=== PATIENT | female | born 1985 | race Caucasian/White ===

== ENCOUNTER 2017-02-02 09:47 | Emergency (ER) | payer OTHER ==
--- NOTE | 2017-02-02 10:57 | DIAGNOSTIC IMAGING REPORT ---
PROCEDURE: XR FOOT 3 VIEWS - LEFT INDICATION: PAIN TECHNIQUE: Three views. COMPARISON: None. FINDINGS: Osseous structures and joint spaces are normal. IMPRESSION: 1. Normal left foot.
--- NOTE | 2017-02-02 11:45 | ED CLINICAL REPORT ---
Clinical Report - Physicians/Mid Levels [facility] [address] [place] [address] 02/02/2017 9:49 [facility]: [facility]LE[id number] Time Seen: 10:08; initial patient contact. Arrived- By private vehicle. Historian- patient. HISTORY OF PRESENT ILLNESS Chief Complaint: Injury to the left foot. The injury happened about 2 weeks ago. Occurred at home. (no known injury). Patient is experiencing mild pain. Patient denies injury to the head or neck. REVIEW OF SYSTEMS The patient complains of pain on weight bearing. She has had tingling. Not having inability to void. No swelling, weakness, numbness, skin laceration or back pain. No joint pain. All systems otherwise negative, except as recorded above. PAST HISTORY Abscess. Dental Caries. Substance Abuse. ADD - Attention Deficit Disorder. Arthritis. Acute Pain. ADDITIONAL SURGERIES: Tubal Ligation. SOCIAL HISTORY Current every day smoker. Occasional alcohol use. No drug use. ADDITIONAL NOTES The nursing notes have been reviewed. PHYSICAL EXAM Vital Signs: 02/02/2017 09:56 BP: 123/86. HR: 82. RR: 18. O2 saturation: 100%. Temp: 97.8 F. Pain level now: 2/10. Have been reviewed as normal. Appearance: Alert. Oriented X3. No acute distress. Back: Normal inspection. No tenderness. ROM normal. Extremities: Left foot: mild tenderness. Neurovascular intact distally. No erythema, swelling, ecchymosis or deformity. No limitation of weight bearing. No ankle injury. Foot and ankle exam otherwise negative. Extremities otherwise negative. Neuro, Vascular and Tendons: Vascular status intact. Sensation intact. Motor intact. Tendon function intact. Gait: Normal gait. Neuro: Oriented X 3. No motor deficit. No sensory deficit. (Negative SLR's). LABS, X-RAYS, AND EKG Lt Foot X-ray: No fracture. Normal alignment. No bony lesion. Soft tissues normal. Joint spaces normal. Views: 3 view foot series. Technique: good. The X-rays were independently viewed by me and interpreted contemporaneously by me. Prior films were not available for comparison. PROGRESS AND PROCEDURES Disposition: Discharged home in good condition. Condition: good. CLINICAL IMPRESSION Paresthesia INSTRUCTIONS Apply ice for 20 minutes four times a day until better. Don't apply ice directly to skin. Your Current Medications: STOP TAKING THE FOLLOWING MEDICATIONS: Ibuprofen Oral. Prescription Medications: Diclofenac 50 mg tablets: take 1 tablet orally every 8 hours as needed for pain or stiffness. Dispense thirty (30). No refill. Follow-up: Follow up with your doctor in about two days. Call for an appointment. Screening today revealed the patient's blood pressure to be in the pre-hypertensive range. The patient should follow up with a primary care provider for blood pressure management. Follow-up with: Deejay Eugene MD, Neurology, , [address] , [place], [phone] Follow up in about two days. Call for an appointment. (Electronically signed by Familia Pino Dr. 02/03/2017 8:41)
--- NOTE | 2017-02-02 11:45 | ED ORDER SUMMARY ---
..... Patient: LUZ ELENA MALLORY OrderSheet [facility] VisitID: [id number] [address] [place] [address] 31y, F Registration Date/Time: 02/02/2017 ORDER SHEET Weight: 72.5 kg (stated) Allergies: Cipro, Levaquin GENERAL ORDERS: Foot 3V Left Urgent (10:38 02/02/2017 Shazia Pedroza) ([facility] 10:43 Isabel) (10:59 Jo Alejo) MEDICATION ORDERS: IV FLUIDS: ORDER SHEET NOTES: [Electronically signed by Sindy Gomez R.N. (11:48 02/02/2017)] [Electronically signed by Familia Pino Dr. (08:41 02/03/2017)] [Electronically locked/signed by Sindy Gomez R.N. (11:48 02/02/2017)]
--- NOTE | 2017-02-02 11:45 | ED NURSING NOTES ---
Clinical Report - Nurses [facility] [address] [place] [address] 02/02/2017 9:49 [id number] TRI[facility] Triage time 09:55 Feb 02 2017. Acuity: LEVEL 4. Chief Complaint: LEFT LOWER EXTREMITY PAIN, NUMBNESS and TINGLING. Location of symptoms- left great toe and left 2nd toe (About three weeks ago Left large toe was numb, now has graduated to other toes and foot, patient with pressure). 10:03 02/02/17. SEPSIS SCREEN: Sepsis Screen. Negative (no infection suspected/documented). MILY COMA SCORE: Stamps Coma Scale: 15- eyes open spontaneously (4); best verbal response- oriented x 4 (5); best motor response- obeys commands (6). --10:03 Idalia Knox R.N. 09:56 02/02/17. BP: 123/86 (regular adult cuff) taken on the left arm, while sitting. HR: 82. RR: 18. O2 saturation: 100% on room air. Temp: 97.8 F (oral). Pain level now: 11/20. --10:03 Idalia Knox R.N. Weight: 72.5 kg stated. Height/Length: 68 inches Per Patient. BMI: 24.3. --10:00 Idalia Knox R.N. Medications Ibuprofen Oral. --09:59 Idalia Knox R.N. Allergies Cipro. Levaquin. --09:59 Idalia Knox R.N. History Arrived by private vehicle. Historian: patient. Accompanied by family. Primary physician (MERCEDES MARIA). No injury occurred. This occurred (3 weeks ago). Provoking / relieving factors: worsened by standing and walking; relieved by lying down and remaining still. 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 PAST MEDICAL HX: Tetanus status: up-to-date. Last normal menstrual period was 4 weeks ago- days ago. SOCIAL HX: Current every day light tobacco smoker- less than 1/2 a pack per day. Occasional alcohol use; consumes wine. No drug use. No infectious disease exposure. ABUSE ASSESSMENT: No report of abuse. --10:03 Idalia Knox R.N. PROBLEMS: Abscess. Dental Caries. Substance Abuse. ADD - Attention Deficit Disorder. Arthritis. Acute Pain. --09:59 Idalia Knox R.N. ADDITIONAL SURGERIES: Tubal Ligation. --09:59 Idalia Knox R.N. Interventions ID band on patient. To treatment room. --10: Idlaia Knox R.N. PHYSICAL ASSESSMENT 10:02/02/17. Ambulatory to room. GENERAL / NEURO / PSYCH: Oriented X 4. Alert. Appears in no acute distress. EXTREMITIES: Extremity pulses are within normal limits. Extremities exhibit normal ROM. No lower extremity edema. Normal gait. Left big toe. Left second toe: tenderness. No limitation in movement. SKIN: Skin intact. Skin is warm. --10:03 Idalia Knox R.N. NURSING PROGRESS NOTES 10:02/02/17. The plan of care for this patient has been created. Reassurance given. Two patient identifiers checked. Call light placed in reach. Side rails up x 1. Bed placed in lowest position. Brakes of bed on. Patient ready for evaluation- chart flagged and ED physician notified. --10:04 Idalia Knox R.N. 10:59 02/02/17. ( Patient finished with xray). --10:59 Idalia Knox R.N. 11:02/02/17. ( patient offered blanket or water, she declined). --11:06 Idalia Knox R.N. DISPOSITION / DISCHARGE Departure time: 1145 AM. Condition at departure: improved and stable. The goals identified in the patient's plan of care were met. No learning barriers present. Reviewed medication(s) side effects, precautions, dosing and course information. Prescription(s) given to the patient. Reviewed referral to a neurologist. Patient and spouse verbalized understanding. Written instructions provided in Faroese. No warning instructions or treatment instructions. The patient was discharged by the physician. She was discharged home and accompanied by spouse. She left the Emergency Department ambulatory and via private vehicle. Spouse driving. FALL RISK ASSESSMENT: Fall risk assessment completed. No fall risk identified. --11:47 Sindy Gomez R.N. 11:40 02/02/17. BP: 129/88 (regular adult cuff) taken on the left arm, via an automated monitor, while sitting. HR: 87. RR: 14. O2 saturation: 100% on room air. Temp: 98.3 F (oral). Pain level now: 12/18. --11:47 Sindy Gomez R.N. Locked/Released at 02/02/2017 11:48 by Sindy Gomez R.N.
--- NOTE | 2017-02-02 11:45 | ED CLINICAL REPORT ---
Clinical Report - Physicians/Mid Levels [facility] [address] [place] [address] 02/02/2017 9:49 [facility]: [id number] Time Seen: 10:08; initial patient contact. Arrived- By private vehicle. Historian- patient. HISTORY OF PRESENT ILLNESS Chief Complaint: Injury to the left foot. The injury happened about 2 weeks ago. Occurred at home. (no known injury). Patient is experiencing mild pain. Patient denies injury to the head or neck. REVIEW OF SYSTEMS The patient complains of pain on weight bearing. She has had tingling. Not having inability to void. No swelling, weakness, numbness, skin laceration or back pain. No joint pain. All systems otherwise negative, except as recorded above. PAST HISTORY Abscess. Dental Caries. Substance Abuse. ADD - Attention Deficit Disorder. Arthritis. Acute Pain. ADDITIONAL SURGERIES: Tubal Ligation. SOCIAL HISTORY Current every day smoker. Occasional alcohol use. No drug use. ADDITIONAL NOTES The nursing notes have been reviewed. PHYSICAL EXAM Vital Signs: 02/02/2017 09:56 BP: 123/86. HR: 82. RR: 18. O2 saturation: 100%. Temp: 97.8 F. Pain level now: 2/10. Have been reviewed as normal. Appearance: Alert. Oriented X3. No acute distress. Back: Normal inspection. No tenderness. ROM normal. Extremities: Left foot: mild tenderness. Neurovascular intact distally. No erythema, swelling, ecchymosis or deformity. No limitation of weight bearing. No ankle injury. Foot and ankle exam otherwise negative. Extremities otherwise negative. Neuro, Vascular and Tendons: Vascular status intact. Sensation intact. Motor intact. Tendon function intact. Gait: Normal gait. Neuro: Oriented X 3. No motor deficit. No sensory deficit. (Negative SLR's). LABS, X-RAYS, AND EKG Lt Foot X-ray: No fracture. Normal alignment. No bony lesion. Soft tissues normal. Joint spaces normal. Views: 3 view foot series. Technique: good. The X-rays were independently viewed by me and interpreted contemporaneously by me. Prior films were not available for comparison. PROGRESS AND PROCEDURES Disposition: Discharged home in good condition. Condition: good. CLINICAL IMPRESSION Paresthesia INSTRUCTIONS Apply ice for 20 minutes four times a day until better. Don't apply ice directly to skin. Your Current Medications: STOP TAKING THE FOLLOWING MEDICATIONS: Ibuprofen Oral. Prescription Medications: Diclofenac 50 mg tablets: take 1 tablet orally every 8 hours as needed for pain or stiffness. Dispense thirty (30). No refill. Follow-up: Follow up with your doctor in about two days. Call for an appointment. Screening today revealed the patient's blood pressure to be in the pre-hypertensive range. The patient should follow up with a primary care provider for blood pressure management. Follow-up with: Deejay Eugene MD, Neurology, , [address] , [place], [phone] Follow up in about two days. Call for an appointment. (Electronically signed by Familia Pino Dr. 02/03/2017 8:41)
--- NOTE | 2017-02-02 11:45 | ED NURSING NOTES ---
Clinical Report - Nurses [facility] [address] [place] [address] 02/02/2017 9:49 [id number] TRI[facility] Triage time 09:55 Feb 02 2017. Acuity: LEVEL 4. Chief Complaint: LEFT LOWER EXTREMITY PAIN, NUMBNESS and TINGLING. Location of symptoms- left great toe and left 2nd toe (About three weeks ago Left large toe was numb, now has graduated to other toes and foot, patient with pressure). 10:03 02/02/17. SEPSIS SCREEN: Sepsis Screen. Negative (no infection suspected/documented). MILY COMA SCORE: Blak[place] Coma Scale: 15- eyes open spontaneously (4); best verbal response- oriented x 4 (5); best motor response- obeys commands (6). --10:03 Idalia Knox R.N. 09:56 02/02/17. BP: 123/86 (regular adult cuff) taken on the left arm, while sitting. HR: 82. RR: 18. O2 saturation: 100% on room air. Temp: 97.8 F (oral). Pain level now: 11/20. --10:03 Idalia Knox R.N. Weight: 72.5 kg stated. Height/Length: 68 inches Per Patient. BMI: 24.3. --10:00 Idalia Knox R.N. Medications Ibuprofen Oral. --09:59 Idalia Knox R.N. Allergies Cipro. Levaquin. --09:59 Idalia Knox R.N. History Arrived by private vehicle. Historian: patient. Accompanied by family. Primary physician (MERCEDES MARIA). No injury occurred. This occurred (3 weeks ago). Provoking / relieving factors: worsened by standing and walking; relieved by lying down and remaining still. 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 PAST MEDICAL HX: Tetanus status: up-to-date. Last normal menstrual period was 4 weeks ago- days ago. SOCIAL HX: Current every day light tobacco smoker- less than 1/2 a pack per day. Occasional alcohol use; consumes wine. No drug use. No infectious disease exposure. ABUSE ASSESSMENT: No report of abuse. --10:03 Idalia Knox R.N. PROBLEMS: Abscess. Dental Caries. Substance Abuse. ADD - Attention Deficit Disorder. Arthritis. Acute Pain. --09:59 Idalia Knox R.N. ADDITIONAL SURGERIES: Tubal Ligation. --09:59 Idalia Knox R.N. Interventions ID band on patient. To treatment room. --10: Idalia Knox R.N. PHYSICAL ASSESSMENT 10:02/02/17. Ambulatory to room. GENERAL / NEURO / PSYCH: Oriented X 4. Alert. Appears in no acute distress. EXTREMITIES: Extremity pulses are within normal limits. Extremities exhibit normal ROM. No lower extremity edema. Normal gait. Left big toe. Left second toe: tenderness. No limitation in movement. SKIN: Skin intact. Skin is warm. --10:03 Idalia Knox R.N. NURSING PROGRESS NOTES 10:02/02/17. The plan of care for this patient has been created. Reassurance given. Two patient identifiers checked. Call light placed in reach. Side rails up x 1. Bed placed in lowest position. Brakes of bed on. Patient ready for evaluation- chart flagged and ED physician notified. --10:04 Idalia Knox R.N. 10:59 02/02/17. ( Patient finished with xray). --10:59 Idalia Knox R.N. 11:02/02/17. ( patient offered blanket or water, she declined). --11:06 Idalia Knox R.N. DISPOSITION / DISCHARGE Departure time: 1145 AM. Condition at departure: improved and stable. The goals identified in the patient's plan of care were met. No learning barriers present. Reviewed medication(s) side effects, precautions, dosing and course information. Prescription(s) given to the patient. Reviewed referral to a neurologist. Patient and spouse verbalized understanding. Written instructions provided in Taiwanese. No warning instructions or treatment instructions. The patient was discharged by the physician. She was discharged home and accompanied by spouse. She left the Emergency Department ambulatory and via private vehicle. Spouse driving. FALL RISK ASSESSMENT: Fall risk assessment completed. No fall risk identified. --11:47 Sindy Gomez R.N. 11:40 02/02/17. BP: 129/88 (regular adult cuff) taken on the left arm, via an automated monitor, while sitting. HR: 87. RR: 14. O2 saturation: 100% on room air. Temp: 98.3 F (oral). Pain level now: 12/18. --11:47 Sindy Gomez R.N. Locked/Released at 02/02/2017 11:48 by Sindy Gomez R.N.
--- NOTE | 2017-02-02 11:45 | ED ORDER SUMMARY ---
..... Patient: LUZ ELENA MALLORY OrderSheet [facility] VisitID: [id number] [address] [place] [address] 31y, F Registration Date/Time: 02/02/2017 ORDER SHEET Weight: 72.5 kg (stated) Allergies: Cipro, Levaquin GENERAL ORDERS: Foot 3V Left Urgent (10:38 02/02/2017 Shazia Pedroza) ([facility] 10:43 Isabel) (10:59 Jo Alejo) MEDICATION ORDERS: IV FLUIDS: ORDER SHEET NOTES: [Electronically signed by Sindy Gomez R.N. (11:48 02/02/2017)] [Electronically signed by Familia Pino Dr. (08:41 02/03/2017)] [Electronically locked/signed by Sindy Gomez R.N. (11:48 02/02/2017)]
--- NOTE | 2017-02-03 08:41 | ED MED RECONCILIATION SUMMARY ---
Patient: LUZ ELENA MALLORY Medication Reconciliation Report [facility] VisitID: [id number] [address] [place] [place] [address] 31y, F Registration Date/Time: 02/02/2017 Weight: 72.5 kg Height/Length: 68 in. BMI: 24.3 ALLERGIES: Cipro, Levaquin The patient's Home Medications are listed below: STOP TAKING THE FOLLOWING MEDICATIONS: Ibuprofen Oral The source(s) of the original Home Medication information: Not obtained. The following Medications were given to the patient in the Emergency Department: None. The following Medications were prescribed to the patient: Diclofenac 50 mg tablets: take 1 tablet orally every 8 hours as needed for pain or stiffness. Dispense thirty (30). No refill. -- Familia Pino Dr.
--- NOTE | 2017-02-03 08:41 | ED DISCHARGE INSTRUCTIONS ---
Patient: LUZ ELENA MALLORY General Instructions [facility] VisitID: [id number] [place] [address] 31y, F Registration Date/Time: 02/02/2017 Paresthesia INSTRUCTIONS Apply ice for 20 minutes four times a day until better. Don't apply ice directly to skin. Your Current Medications: STOP TAKING THE FOLLOWING MEDICATIONS: Ibuprofen Oral. Prescription Medications: Diclofenac 50 mg tablets: take 1 tablet orally every 8 hours as needed for pain or stiffness. Dispense thirty (30). No refill. Follow-up: Follow up with your doctor in about two days. Call for an appointment. Screening today revealed the patient's blood pressure to be in the pre-hypertensive range. The patient should follow up with a primary care provider for blood pressure management. Follow-up with: Deejay Eugene MD, Neurology, , [address], , [place], [phone] Follow up in about two days. Call for an appointment. ADDITIONAL INFORMATION Paraesthesias Paraesthesia refers to a burning or prickling sensation that is sometimes felt in the hands, arms, legs or feet. It can also occur in other parts of the body. It can also feel like tingling or numbness, skin crawling or itching.The sensation is usually painless. Most people have experienced pins and needles. This feeling happens when legs have been crossed for too long and pressure is placed on a nerve. This is a temporary paraesthesia. It quickly goes away once the pressure is relieved. There are many possible causes for chronic paraesthesias. These include such disorders as stroke, herniated disk (pressing on a nerve), trapped nerve in the shoulder, elbow or wrist (such as carpal tunnel syndrome), vitamin deficiencies or even certain medicines. Laboratory tests are needed to make an accurate diagnosis. These tests may include blood tests, X-ray, CT (computerized tomography) scan or a muscle test (electromyography).Depending on the cause, treatment may include physical therapy. Home Care: Do not make any changes to your medicines without advice from your doctor. If vitamins have been prescribed, remember to take them daily at the recommended dose. Because of a decrease in feeling, a numb hand or foot may be more prone to injury. Take care to protect these areas from cuts, bumps, bruises, paul or other injury. Keep your nails trimmed and wash your hands and feet often. Wear shoes that fit well to avoid pressure points, blisters and ulcers. Look at your hands and feet carefully (including the soles of your feet and between your toes) at least once a week and notify your doctor of any open wounds or signs of infection. Follow Up with your doctor or as advised by our staff. You may need further testing to determine the exact cause of your paraesthesia. [NOTE: If blood tests, X-ray, CT scan or electromyography were done, specialists will review them. You will be notified of any new findings that may affect your care.] Get Prompt Medical Attention if any of the following occur: Numbness or weakness of the face, one arm or one leg Slurred speech, confusion, trouble speaking, walking or seeing Severe headache, fainting spell, dizziness or seizure Chest, arm, neck or upper back pain Loss of bladder or bowel control Open wound with redness, swelling or pus You have been given the following additional information: Paraesthesias (Electronically signed by Familia Pino Dr. 02/03/2017 8:41)
--- NOTE | 2017-02-03 08:41 | ED MAR SUMMARY ---
..... Medication Administration Record [facility] [address] [id number] Patient: LUZ ELENA MALLORY Visit ID: [id number] 31y, F Weight: 72.5 kg Height/Length: 68 in BMI: 24.3 ALLERGIES: Cipro, Levaquin
--- NOTE | 2017-02-03 08:41 | ED DISCHARGE INSTRUCTIONS ---
Patient: LUZ ELENA MALLORY General Instructions [facility] VisitID: [id number] [place] [address] 31y, F Registration Date/Time: 02/02/2017 Paresthesia INSTRUCTIONS Apply ice for 20 minutes four times a day until better. Don't apply ice directly to skin. Your Current Medications: STOP TAKING THE FOLLOWING MEDICATIONS: Ibuprofen Oral. Prescription Medications: Diclofenac 50 mg tablets: take 1 tablet orally every 8 hours as needed for pain or stiffness. Dispense thirty (30). No refill. Follow-up: Follow up with your doctor in about two days. Call for an appointment. Screening today revealed the patient's blood pressure to be in the pre-hypertensive range. The patient should follow up with a primary care provider for blood pressure management. Follow-up with: Deejay Eugene MD, Neurology, , [address], , [place], [phone] Follow up in about two days. Call for an appointment. ADDITIONAL INFORMATION Paraesthesias Paraesthesia refers to a burning or prickling sensation that is sometimes felt in the hands, arms, legs or feet. It can also occur in other parts of the body. It can also feel like tingling or numbness, skin crawling or itching.The sensation is usually painless. Most people have experienced pins and needles. This feeling happens when legs have been crossed for too long and pressure is placed on a nerve. This is a temporary paraesthesia. It quickly goes away once the pressure is relieved. There are many possible causes for chronic paraesthesias. These include such disorders as stroke, herniated disk (pressing on a nerve), trapped nerve in the shoulder, elbow or wrist (such as carpal tunnel syndrome), vitamin deficiencies or even certain medicines. Laboratory tests are needed to make an accurate diagnosis. These tests may include blood tests, X-ray, CT (computerized tomography) scan or a muscle test (electromyography).Depending on the cause, treatment may include physical therapy. Home Care: Do not make any changes to your medicines without advice from your doctor. If vitamins have been prescribed, remember to take them daily at the recommended dose. Because of a decrease in feeling, a numb hand or foot may be more prone to injury. Take care to protect these areas from cuts, bumps, bruises, paul or other injury. Keep your nails trimmed and wash your hands and feet often. Wear shoes that fit well to avoid pressure points, blisters and ulcers. Look at your hands and feet carefully (including the soles of your feet and between your toes) at least once a week and notify your doctor of any open wounds or signs of infection. Follow Up with your doctor or as advised by our staff. You may need further testing to determine the exact cause of your paraesthesia. [NOTE: If blood tests, X-ray, CT scan or electromyography were done, specialists will review them. You will be notified of any new findings that may affect your care.] Get Prompt Medical Attention if any of the following occur: Numbness or weakness of the face, one arm or one leg Slurred speech, confusion, trouble speaking, walking or seeing Severe headache, fainting spell, dizziness or seizure Chest, arm, neck or upper back pain Loss of bladder or bowel control Open wound with redness, swelling or pus You have been given the following additional information: Paraesthesias (Electronically signed by Familia Pino Dr. 02/03/2017 8:41)
--- NOTE | 2017-02-03 08:41 | ED MED RECONCILIATION SUMMARY ---
Patient: LUZ ELENA MALLORY Medication Reconciliation Report [facility] VisitID: [id number] [address] [place] [address] 31y, F Registration Date/Time: 02/02/2017 Weight: 72.5 kg Height/Length: 68 in. BMI: 24.3 ALLERGIES: Cipro, Levaquin The patient's Home Medications are listed below: STOP TAKING THE FOLLOWING MEDICATIONS: Ibuprofen Oral The source(s) of the original Home Medication information: Not obtained. The following Medications were given to the patient in the Emergency Department: None. The following Medications were prescribed to the patient: Diclofenac 50 mg tablets: take 1 tablet orally every 8 hours as needed for pain or stiffness. Dispense thirty (30). No refill. -- [address].
--- NOTE | 2017-02-03 08:41 | ED MAR SUMMARY ---
..... Medication Administration Record [facility] [address] [place], [place] [id number] Patient: LUZ ELENA MALLORY Visit ID: [id number] 31y, F Weight: 72.5 kg Height/Length: 68 in BMI: 24.3 ALLERGIES: Cipro, Levaquin
== END 2017-02-02 11:43 | disposition home or self-care (01) ==
LOC: ED SRH 09:47
DX: R20.2 Paresthesia of skin (principal); F17.210 Nicotine dependence, cigarettes, uncomplicated; Z88.1 Allergy status to other antibiotic agents

== ENCOUNTER 2017-03-11 20:15 | Emergency (ER) | payer OTHER ==
--- NOTE | 2017-03-11 23:34 | ED ORDER SUMMARY ---
..... Patient: LUZ ELENA MALLORY OrderSheet [facility] VisitID: [id number] [place] [address] 31y, F Registration Date/Time: 03/11/2017 ORDER SHEET Weight: 78.4 kg (stated) Allergies: Cipro, Levaquin GENERAL ORDERS: UA-Culture if indicated Urgent (20:48 03/11/2017 DDavis R.N. per protocol) (20:48 DDavis R.N.) Urine Urgent (20:48 03/11/2017 DDavis R.N. per protocol) (20:48 DDavis R.N.) CBC w Diff Urgent (21:02 03/11/2017 EKoroleva P.A.-C) (Ack 21:04 LMuller) (21:14 RCollier R.N.) CMP Urgent (21:02 03/11/2017 EKoroleva P.A.-C) (Ack 21:04 LMuller) (21:14 RCollier R.N.) Lipase Urgent (21:02 03/11/2017 EKoroleva P.A.-C) (Ack 21:04 LMuller) (21:14 RCollier R.N.) US Abdomen Limited (No) Urgent (21:53 03/11/2017 EKoroleva P.A.-C) (Ack 21:57 LMuller) (23:20 LMuller) MEDICATION ORDERS: IV FLUIDS: IV NS : initial bolus 1000 mL (1000 mL/hr), then 1000 mL/hr for X1 (NOW); Jayce (21:01 03/11/2017 EKoroleva P.A.-C) (21:21 DDavis R.N.) Zofran IV 8 mg (NOW) (21:01 03/11/2017 EKoroleva P.A.-C) (21:21 DDavis R.N.) ORDER SHEET NOTES: [Electronically signed by James Hawkins R.N. (23:47 03/11/2017)] [Electronically signed by Sonja Resendiz MD (15:41 03/24/2017)] [Electronically locked/signed by James Hawkins R.N. (23:47 03/11/2017)]
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
--- NOTE | 2017-03-11 23:34 | ED ORDER SUMMARY ---
..... Patient: LUZ ELENA MALLORY OrderSheet [facility] VisitID: [id number] [place] [address] 31y, F Registration Date/Time: 03/11/2017 ORDER SHEET Weight: 78.4 kg (stated) Allergies: Cipro, Levaquin GENERAL ORDERS: UA-Culture if indicated Urgent (20:48 03/11/2017 DDavis R.N. per protocol) (20:48 DDavis R.N.) Urine Urgent (20:48 03/11/2017 DDavis R.N. per protocol) (20:48 DDavis R.N.) CBC w Diff Urgent (21:02 03/11/2017 EKoroleva P.A.-C) (Ack 21:04 LMuller) (21:14 RCollier R.N.) CMP Urgent (21:02 03/11/2017 EKoroleva P.A.-C) (Ack 21:04 LMuller) (21:14 RCollier R.N.) Lipase Urgent (21:02 03/11/2017 EKoroleva P.A.-C) (Ack 21:04 LMuller) (21:14 RCollier R.N.) US Abdomen Limited (No) Urgent (21:53 03/11/2017 EKoroleva P.A.-C) (Ack 21:57 LMuller) (23:20 LMuller) MEDICATION ORDERS: IV FLUIDS: IV NS : initial bolus 1000 mL (1000 mL/hr), then 1000 mL/hr for X1 (NOW); Jayce (21:01 03/11/2017 EKoroleva P.A.-C) (21:21 DDavis R.N.) Zofran IV 8 mg (NOW) (21:01 03/11/2017 EKoroleva P.A.-C) (21:21 DDavis R.N.) ORDER SHEET NOTES: [Electronically signed by James Hawkins R.N. (23:47 03/11/2017)] [Electronically signed by Sonja Resendiz MD (15:41 03/24/2017)] [Electronically locked/signed by James Hawkins R.N. (23:47 03/11/2017)]
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
--- NOTE | 2017-03-12 07:34 | DIAGNOSTIC IMAGING REPORT ---
PROCEDURE: US ABDOMEN ULTRASOUND-LIMITED INDICATION: RUQ PAIN TECHNIQUE: Umaña scale and color Doppler sonographic images were obtained of the right upper quadrant. COMPARISON: None. FINDINGS: The liver is normal in size, contour, and echotexture. No mass or biliary dilatation. The gallbladder contains multiple large, non-mobile, partially calcified stones, one of the largest measuring 2.9 cm. There is one measuring 1.9 cm in the neck of the gallbladder. There is some echogenic bile/debris within the gallbladder as well. The wall is of normal thickness measuring 2.6 mm. There was no Allen's sign, wall hyperemia, or pericholecystic fluid. The common duct is normal at 5.4 mm. The visible portion of the inferior vena cava, abdominal aorta, and portal vein appear normal with appropriate direction of flow in the portal vein. The right kidney is normal measuring 11.4 cm. No free fluid in the right upper quadrant. IMPRESSION: 1. Cholelithiasis without sonographic evidence of acute cholecystitis. 2. No biliary dilatation.
--- NOTE | 2017-03-24 15:41 | ED DISCHARGE INSTRUCTIONS ---
Patient: LUZ ELENA MALLORY General Instructions [facility] VisitID: [id number] [place] [address] 31y, F Registration Date/Time: 03/11/2017 Cholelithiasis. No obstruction or cholecystitis. INSTRUCTIONS Drink plenty of fluids. Warnings: Further evaluation is necessary. GENERAL WARNINGS: Return or contact your physician immediately if your condition worsens or changes unexpectedly, if not improving as expected, or if other problems arise. Your Current Medications: CONTINUE TAKING THE FOLLOWING MEDICATIONS: PriLOSEC Oral. Prescription Medications: Hydrocodone/APAP 5mg / 325mg: take 1-2 orally every 6 hours as needed for pain. Dispense twenty-five (25). No refill. Zofran (orally disintegrating tablets) 4 mg: take 1-2 orally every 6 hours as needed for nausea. Dispense thirty (30). No refill. Substitution is permissible. Understanding of the discharge instructions verbalized by patient. Follow-up with: Britton Carter MD, General Surgeon, , [place] [id number]; Dewey Massey MD, General Surgeon, , [place] [id number] Follow up. Call for the next available appointment. Reason for referral: Follow up ER visit for gall stones. ADDITIONAL INFORMATION GallstonesWith Biliary Colic [Confirmed Dx] The abdominal pain that you have today is due to spasm of the gallbladder. The gallbladder is a small sac under the liver which stores and releases bile. Bile is a fluid that aids in the digestion of fat. A gallstone may form inside the gallbladder and block the flow of bile fluid. This causes mild to severe crampy pain in the mid or right upper abdomen with nausea and vomiting. Home Care: Rest in bed and follow a clear liquid diet until feeling better. If pain or nausea medicine was given to help with your symptoms, take these as directed. Fat in your diet makes the gallbladder contract and may cause increased pain. Therefore, avoid fat in your diet over the next two days and follow a low-fat diet after that. If you are overweight, a low-fat diet will also help you lose weight. Follow Up with your doctor. There is a 50% chance that you will have another episode of pain from your gallstones during the next 2 years. Removal of the gallbladder is the treatment of choice to prevent this. Schedule an appointment with your own doctor during the next week to discuss the treatment options. Get Prompt Medical Attention if any of the following occur: Pain gets worse or moves to the right lower abdomen Repeated vomiting Swelling of the abdomen Pain lasts over 6 hours Fever of 100.4F (38C) or higher, or as directed by your healthcare provider Weakness, dizziness or fainting Dark urine or light colored stools Yellow color of the skin or eyes Chest, arm, back, neck or jaw pain You have been given the following additional information: Biliary Colic With Gallstone (Confirmed) (Electronically signed by Sonja Resendiz MD 03/24/2017 15:41)
--- NOTE | 2017-03-24 15:41 | ED DISCHARGE INSTRUCTIONS ---
Patient: LUZ ELENA MALLORY General Instructions [facility] VisitID: [id number] [place] [address] 31y, F Registration Date/Time: 03/11/2017 Cholelithiasis. No obstruction or cholecystitis. INSTRUCTIONS Drink plenty of fluids. Warnings: Further evaluation is necessary. GENERAL WARNINGS: Return or contact your physician immediately if your condition worsens or changes unexpectedly, if not improving as expected, or if other problems arise. Your Current Medications: CONTINUE TAKING THE FOLLOWING MEDICATIONS: PriLOSEC Oral. Prescription Medications: Hydrocodone/APAP 5mg / 325mg: take 1-2 orally every 6 hours as needed for pain. Dispense twenty-five (25). No refill. Zofran (orally disintegrating tablets) 4 mg: take 1-2 orally every 6 hours as needed for nausea. Dispense thirty (30). No refill. Substitution is permissible. Understanding of the discharge instructions verbalized by patient. Follow-up with: Britton Carter MD, General Surgeon, , [place] [id number]; Dewey Massey MD, General Surgeon, , [place] [address] Follow up. Call for the next available appointment. Reason for referral: Follow up ER visit for gall stones. ADDITIONAL INFORMATION GallstonesWith Biliary Colic [Confirmed Dx] The abdominal pain that you have today is due to spasm of the gallbladder. The gallbladder is a small sac under the liver which stores and releases bile. Bile is a fluid that aids in the digestion of fat. A gallstone may form inside the gallbladder and block the flow of bile fluid. This causes mild to severe crampy pain in the mid or right upper abdomen with nausea and vomiting. Home Care: Rest in bed and follow a clear liquid diet until feeling better. If pain or nausea medicine was given to help with your symptoms, take these as directed. Fat in your diet makes the gallbladder contract and may cause increased pain. Therefore, avoid fat in your diet over the next two days and follow a low-fat diet after that. If you are overweight, a low-fat diet will also help you lose weight. Follow Up with your doctor. There is a 50% chance that you will have another episode of pain from your gallstones during the next 2 years. Removal of the gallbladder is the treatment of choice to prevent this. Schedule an appointment with your own doctor during the next week to discuss the treatment options. Get Prompt Medical Attention if any of the following occur: Pain gets worse or moves to the right lower abdomen Repeated vomiting Swelling of the abdomen Pain lasts over 6 hours Fever of 100.4F (38C) or higher, or as directed by your healthcare provider Weakness, dizziness or fainting Dark urine or light colored stools Yellow color of the skin or eyes Chest, arm, back, neck or jaw pain You have been given the following additional information: Biliary Colic With Gallstone (Confirmed) (Electronically signed by Sonja Resendiz MD 03/24/2017 15:41)
--- NOTE | 2017-03-24 15:41 | ED MAR SUMMARY ---
..... Medication Administration Record [facility] [address] [place] [address] Patient: LUZ ELENA MALLORY Visit ID: [id number] 31y, F Weight: 78.4 kg Height/Length: 63 in BMI: 30.6 ALLERGIES: Cipro, Levaquin Start 21:15 03/11/2017 James Hawkins R.N., Stop 22:20 03/11/2017 James Hawkins R.N. Medication Administered: IV NS (SALINE), Dose: IV Fluids over 1 hour(s), Rate: 1000 mL/hr, Dispensed: 1000 mL bag, Site: #1 right AC. Medication Ordered: IV NS : initial bolus 1000 mL (1000 mL/hr), then 1000 mL/hr for X1 (NOW); Jayce. Given 21:18 03/11/2017 James Hawkins R.N. Medication Administered: ZOFRAN [IVP] (ONDANSETRON HCL), Dose: 8 mg IVP over 2 minute(s), Site: #1 right AC. Medication Ordered: Zofran IV 8 mg (NOW).
--- NOTE | 2017-03-24 15:41 | ED MAR SUMMARY ---
..... Medication Administration Record [facility] [address] [place] [address] Patient: LUZ ELENA MALLORY Visit ID: [id number] 31y, F Weight: 78.4 kg Height/Length: 63 in BMI: 30.6 ALLERGIES: Cipro, Levaquin Start 21:15 03/11/2017 James Hawkins R.N., Stop 22:20 03/11/2017 James Hawkins R.N. Medication Administered: IV NS (SALINE), Dose: IV Fluids over 1 hour(s), Rate: 1000 mL/hr, Dispensed: 1000 mL bag, Site: #1 right AC. Medication Ordered: IV NS : initial bolus 1000 mL (1000 mL/hr), then 1000 mL/hr for X1 (NOW); Jayce. Given 21:18 03/11/2017 James Hawkins R.N. Medication Administered: ZOFRAN [IVP] (ONDANSETRON HCL), Dose: 8 mg IVP over 2 minute(s), Site: #1 right AC. Medication Ordered: Zofran IV 8 mg (NOW).
--- NOTE | 2017-03-24 15:41 | ED MED RECONCILIATION SUMMARY ---
Patient: LUZ ELENA MALLORY Medication Reconciliation Report [facility] VisitID: [id number] [address] [place] [address] 31y, F Registration Date/Time: 03/11/2017 Weight: 78.4 kg Height/Length: 63 in. BMI: 30.6 ALLERGIES: Cipro, Levaquin The patient's Home Medications are listed below: CONTINUE TAKING THE FOLLOWING MEDICATIONS: PriLOSEC Oral The source(s) of the original Home Medication information: Not obtained. The following Medications were given to the patient in the Emergency Department: IV NS IV Fluids bolus 0, then 1000 mL/hr, administered: 03/11/2017 9:15:00 PM Zofran [IVP] IVP 8 mg, administered: 03/11/2017 9:18:00 PM The following Medications were prescribed to the patient: Hydrocodone/APAP 5mg / 325mg: take 1-2 orally every 6 hours as needed for pain. Dispense twenty-five (25). No refill. -- Sonja Resendiz MD Zofran (orally disintegrating tablets) 4 mg: take 1-2 orally every 6 hours as needed for nausea. Dispense thirty (30). No refill. Substitution is permissible. -- Sonja Resendiz MD
--- NOTE | 2017-03-24 15:41 | ED MED RECONCILIATION SUMMARY ---
Patient: LUZ ELENA MALLORY Medication Reconciliation Report [facility] VisitID: [id number] [address] [place] [address] 31y, F Registration Date/Time: 03/11/2017 Weight: 78.4 kg Height/Length: 63 in. BMI: 30.6 ALLERGIES: Cipro, Levaquin The patient's Home Medications are listed below: CONTINUE TAKING THE FOLLOWING MEDICATIONS: PriLOSEC Oral The source(s) of the original Home Medication information: Not obtained. The following Medications were given to the patient in the Emergency Department: IV NS IV Fluids bolus 0, then 1000 mL/hr, administered: 03/11/2017 9:15:00 PM Zofran [IVP] IVP 8 mg, administered: 03/11/2017 9:18:00 PM The following Medications were prescribed to the patient: Hydrocodone/APAP 5mg / 325mg: take 1-2 orally every 6 hours as needed for pain. Dispense twenty-five (25). No refill. -- Sonja Resendiz MD Zofran (orally disintegrating tablets) 4 mg: take 1-2 orally every 6 hours as needed for nausea. Dispense thirty (30). No refill. Substitution is permissible. -- Sonja Resendiz MD
== END 2017-03-11 23:48 | disposition home or self-care (01) ==
LOC: ED SRH 20:15
DX: K80.20 Calculus of gallbladder without cholecystitis without obstruction (principal); Z79.899 Other long term (current) drug therapy; Z88.1 Allergy status to other antibiotic agents
CPT/HCPCS: 90004; 90100; 92235; 93070; 95059

== ENCOUNTER 2017-03-18 18:26 | Emergency (ER) | payer OTHER ==
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
--- NOTE | 2017-03-18 20:47 | ED ORDER SUMMARY ---
..... Patient: LUZ ELENA MALLORY OrderSheet [facility] VisitID: [id number] [place] [address] 31y, F Registration Date/Time: 03/18/2017 ORDER SHEET Weight: 78.4 kg (stated) Allergies: Levaquin, Cipro GENERAL ORDERS: CBC w Diff Urgent (19:03/18/2017 Cam CLARK) (Ack 19:11 LMuller) CMP Urgent (:03/18/2017 Cam CLARK) (Ack 19:11 LMuller) Lipase Urgent (:03/18/2017 Cam CLARK) (Ack 19:11 LMuller) Amylase Urgent (:03/18/2017 Cam CLARK) (Ack 19:11 LMuller) MEDICATION ORDERS: IV FLUIDS: IV NS : initial bolus 1000 mL (1000 mL/hr), then 200 mL/hr for 4h (NOW); Routine (19:03/18/2017 Cam CLARK) (19:21 BETOnetessy R.N.) Zofran IV 4 mg (NOW) (:03/18/2017 Cam CLARK) (19:21 BETOnetessy R.N.) Demerol IV 25 mg (NOW) (:03/18/2017 Cam CLARK) (19:21 BETOnetessy R.N.) ORDER SHEET NOTES: [Electronically signed by Kecia Kirby R.N. (13:28 03/19/2017)] [Electronically signed by Harvey Noriega MD (08:52 03/22/2017)] [Electronically locked/signed by Kecia Kirby R.N. (13:28 03/19/2017)]
--- NOTE | 2017-03-18 20:47 | ED ORDER SUMMARY ---
..... Patient: LUZ ELENA MALLORY OrderSheet [facility] VisitID: [id number] [place] [address] 31y, F Registration Date/Time: 03/18/2017 ORDER SHEET Weight: 78.4 kg (stated) Allergies: Levaquin, Cipro GENERAL ORDERS: CBC w Diff Urgent (19:03/18/2017 Cam CLARK) (Ack 19:11 LMuller) CMP Urgent (:03/18/2017 Cam CLARK) (Ack 19:11 LMuller) Lipase Urgent (:03/18/2017 Cam CLARK) (Ack 19:11 LMuller) Amylase Urgent (:03/18/2017 Cam CLARK) (Ack 19:11 LMuller) MEDICATION ORDERS: IV FLUIDS: IV NS : initial bolus 1000 mL (1000 mL/hr), then 200 mL/hr for 4h (NOW); Routine (19:03/18/2017 Cam CLARK) (19:21 BETOnetessy R.N.) Zofran IV 4 mg (NOW) (:03/18/2017 Cam CLARK) (19:21 BETOnetessy R.N.) Demerol IV 25 mg (NOW) (:03/18/2017 Cam CLARK) (19:21 BETOnetessy R.N.) ORDER SHEET NOTES: [Electronically signed by Kecia Kirby R.N. (13:28 03/19/2017)] [Electronically signed by Harvey Noriega MD (08:52 03/22/2017)] [Electronically locked/signed by Kecia Kirby R.N. (13:28 03/19/2017)]
--- NOTE | 2017-03-22 08:52 | ED MED RECONCILIATION SUMMARY ---
Patient: LUZ LEENA MALLORY Medication Reconciliation Report [facility] VisitID: [id number] [address] [place] [address] 31y, F Registration Date/Time: 03/18/2017 Weight: 78.4 kg Height/Length: 67 in. BMI: 27.1 ALLERGIES: Cipro, Levaquin The patient's Home Medications are listed below: THE FOLLOWING MEDICATIONS NEED TO BE RECONCILED: PriLOSEC Oral Vicodin Oral Zofran Oral The source(s) of the original Home Medication information: Not obtained. The following Medications were given to the patient in the Emergency Department: IV NS IV Fluids bolus 1000 mL over 1 hour(s), administered: 03/18/2017 7:21:00 PM Zofran [IVP] IVP 4 mg, administered: 03/18/2017 7:21:00 PM Demerol [IVP] IVP 25 mg, administered: 03/18/2017 7:21:00 PM The following Medications were prescribed to the patient: Zofran (orally disintegrating tablets) 4 mg: take 1 orally every 6 hours as needed for nausea. Dispense fifteen (15). No refill. Substitution is permissible. -- Harvey Noriega MD Oxycodone/APAP 5 mg/325 mg: take 1-2 tablets orally every 4 hours as needed for pain. Dispense twenty-five (25). No refill. -- Harvey Noriega MD
--- NOTE | 2017-03-22 08:52 | ED MAR SUMMARY ---
..... Medication Administration Record [facility] [address] [place] [address] Patient: LUZ ELENA MALLORY Visit ID: [id number] 31y, F Weight: 78.4 kg Height/Length: 67 in BMI: 27.1 ALLERGIES: Cipro, Levaquin Start 19:03/18/2017 Kecia Kirby R.N. Medication Administered: IV NS (SALINE), Dose: IV Fluids, Bolus: 1000 mL over 1 hour(s), Dispensed: 1000 mL bag, Site: #1 right AC. Medication Ordered: IV NS : initial bolus 1000 mL (1000 mL/hr), then 200 mL/hr for 4h (NOW); Routine. Given 19:03/18/2017 Kecia Kirby R.N. Medication Administered: ZOFRAN [IVP] (ONDANSETRON HCL), Dose: 4 mg IVP over 2 minute(s), Site: #1 right AC. Medication Ordered: Zofran IV 4 mg (NOW). Given 19:03/18/2017 Kecia Kirby R.NEstuardo Medication Administered: DEMEROL [IVP] (MEPERIDINE HCL), Dose: 25 mg IVP over 2 minute(s), Site: #1 right AC. Medication Ordered: Demerol IV 25 mg (NOW).
--- NOTE | 2017-03-22 08:52 | ED MED RECONCILIATION SUMMARY ---
Patient: LUZ ELENA MALLORY Medication Reconciliation Report [facility] VisitID: [id number] [address] [place] [address] 31y, F Registration Date/Time: 03/18/2017 Weight: 78.4 kg Height/Length: 67 in. BMI: 27.1 ALLERGIES: Cipro, Levaquin The patient's Home Medications are listed below: THE FOLLOWING MEDICATIONS NEED TO BE RECONCILED: PriLOSEC Oral Vicodin Oral Zofran Oral The source(s) of the original Home Medication information: Not obtained. The following Medications were given to the patient in the Emergency Department: IV NS IV Fluids bolus 1000 mL over 1 hour(s), administered: 03/18/2017 7:21:00 PM Zofran [IVP] IVP 4 mg, administered: 03/18/2017 7:21:00 PM Demerol [IVP] IVP 25 mg, administered: 03/18/2017 7:21:00 PM The following Medications were prescribed to the patient: Zofran (orally disintegrating tablets) 4 mg: take 1 orally every 6 hours as needed for nausea. Dispense fifteen (15). No refill. Substitution is permissible. -- Harvey Noriega MD Oxycodone/APAP 5 mg/325 mg: take 1-2 tablets orally every 4 hours as needed for pain. Dispense twenty-five (25). No refill. -- Harvey Noriega MD
--- NOTE | 2017-03-22 08:52 | ED DISCHARGE INSTRUCTIONS ---
Patient: LUZ ELENA MALLORY General Instructions [facility] VisitID: [id number] [place] [address] 31y, F Registration Date/Time: 03/18/2017 Biliary colic with multiple gallstones and acute cholecystitis. Out of medication. INSTRUCTIONS No strenuous activity. Take clear liquids only (frequent sips) for the next 12 hours until better. Advance diet as tolerated. Avoid fatty and fried/greasy foods. Warnings: Further evaluation is necessary. SEDATIVE MEDICATION: You were given sedative medication during your visit. Do not drive or operate dangerous machinery. Prescription Medications: Zofran (orally disintegrating tablets) 4 mg: take 1 orally every 6 hours as needed for nausea. Dispense fifteen (15). No refill. Substitution is permissible. Oxycodone/APAP 5 mg/325 mg: take 1-2 tablets orally every 4 hours as needed for pain. Dispense twenty-five (25). No refill. Follow-up: Return to the emergency department if not better. Follow up with a surgeon Wednesday in four days as scheduled. Understanding of the discharge instructions verbalized by patient and parent. ADDITIONAL INFORMATION GallstonesWith Biliary Colic [Confirmed Dx] The abdominal pain that you have today is due to spasm of the gallbladder. The gallbladder is a small sac under the liver which stores and releases bile. Bile is a fluid that aids in the digestion of fat. A gallstone may form inside the gallbladder and block the flow of bile fluid. This causes mild to severe crampy pain in the mid or right upper abdomen with nausea and vomiting. Home Care: Rest in bed and follow a clear liquid diet until feeling better. If pain or nausea medicine was given to help with your symptoms, take these as directed. Fat in your diet makes the gallbladder contract and may cause increased pain. Therefore, avoid fat in your diet over the next two days and follow a low-fat diet after that. If you are overweight, a low-fat diet will also help you lose weight. Follow Up with your doctor. There is a 50% chance that you will have another episode of pain from your gallstones during the next 2 years. Removal of the gallbladder is the treatment of choice to prevent this. Schedule an appointment with your own doctor during the next week to discuss the treatment options. Get Prompt Medical Attention if any of the following occur: Pain gets worse or moves to the right lower abdomen Repeated vomiting Swelling of the abdomen Pain lasts over 6 hours Fever of 100.4F (38C) or higher, or as directed by your healthcare provider Weakness, dizziness or fainting Dark urine or light colored stools Yellow color of the skin or eyes Chest, arm, back, neck or jaw pain Low Fat Diet A Low-fat diet will help you lose weight. It also can lower cholesterol and prevent symptoms of gallbladder disease. The average [place] diet contains up to 50% fat. This means that 50% of all calories come from fat (80-100 Grams of fat per day). Choosing normal portions of foods from the list below can lower your fat intake to 25-40 Grams of fat per day. This means 10-20% of calories come from fat. The remaining 80-90% of calories come from protein and carbohydrate. This is much healthier for you. Beverages Ok: Nonfat milk, coffee, tea, carbonated beverages Avoid: Whole and low-fat milk, evaporated milk and condensed milk; hot chocolate mixes, milk shakes, malts, eggnog Bread Ok: White, whole wheat or rye bread, lianet or soda crackers, [place] toast, plain rolls, bagels Avoid: Rolls and breads containing whole milk or egg, waffles, pancakes, biscuits, corn bread; cheese crackers, other flavored crackers, pastries, doughnuts; wheat germ Cereal Ok: Oatmeal, whole wheat, bran, multi grain, rice Avoid: Granola or others containing oil or coconut or more than 2 Grams of fat per serving Desserts Ok: Gelatin, water ices, citlaly food cake, puddings or sherbet made with non-fat milk, meringues and non-fat yogurt Avoid: Any other commercially prepared desserts or desserts containing fat, whole milk, cream, chocolate and coconut Fats Ok: You may have up to 3 teaspoons of fat daily. This can be in the form of butter, margarine, mayonnaise or vegetable oil Avoid: Cream, non-dairy creams, gravies and cream sauces Fruits Ok: All fruits prepared without fat Avoid: Avocado, coconut, olives Meats Ok: Limit meat to 6 oz daily (broiled, roasted, baked or boiled). Select only lean cuts, well trimmed of fat: beef, fish, torres, pork and canned fish packed in water. Chicken and turkey with the skin removed Avoid: Fried meats, fish, poultry, fried eggs and fish canned in oils; fatty meats such as putnam, corned beef, hot dogs, luncheon meats, or meats with gravies and sauces Cheese & Eggs Ok: Cheeses labeled "Low Fat"; 3 whole eggs per week, egg whites (Eggbeaters) as desired Avoid: All other cheeses Potatoes, Beans, Pasta Ok: Dried beans, split peas, lentils, potatoes, rice, macaroni, noodles, spaghetti prepared without added fat Avoid: Fried potatoes, potato chips, potatoes prepared with butter, cream cheese Soups Ok: Bouillon or broth soups without fat and with allowed vegetables Avoid: All other soups Vegetables Ok: Fresh, frozen, canned or dried vegetables all prepared without added fat Avoid: Fried vegetables and those prepared with butter, cream, sauces Miscellaneous Ok: Salt, sugar, jelly, hard candy, marshmallows, honey, syrup, spices and herbs, mustard, catsup, lemon, vinegar Avoid: Chocolate, nuts, coconut, cream candies, olives, sunflower or sesame and other seeds, all fried foods, and all cream sauces and gravies Ondansetron Oral disintegrating tablet What is this medicine? ONDANSETRON (on TULIO se tiff) is used to treat nausea and vomiting caused by chemotherapy. It is also used to prevent or treat nausea and vomiting after surgery. How should I use this medicine? These tablets are made to dissolve in the mouth. Do not try to push the tablet through the foil backing. With dry hands, peel away the foil backing and gently remove the tablet. Place the tablet in the mouth and allow it to dissolve, then swallow. While you may take these tablets with water, it is not necessary to do so. Talk to your as400 administrator regarding the use of this medicine in children. Special care may be needed. What side effects may I notice from receiving this medicine? Side effects that you should report to your doctor or health patient care director as soon as possible: allergic reactions like skin rash, itching or hives, swelling of the face, lips, or tongue breathing problems dizziness fast or irregular heartbeat feeling faint or lightheaded, falls fever and chills swelling of the hands and feet tightness in the chest Side effects that usually do not require medical attention (report to your doctor or health patient care director if they continue or are bothersome): constipation or diarrhea headache What may interact with this medicine? Do not take this medicine with any of the following medications: -apomorphine -cisapride -dofetilide -dronedarone -pimozide -thioridazine -ziprasidone This medicine may also interact with the following medications: -carbamazepine -phenytoin -rifampicin -tramadol -other medicines that prolong the QT interval (cause an abnormal heart rhythm) What if I miss a dose? If you miss a dose, take it as soon as you can. If it is almost time for your next dose, take only that dose. Do not take double or extra doses. Where should I keep my medicine? Keep out of the reach of children. Store between 2 and 30 degrees C (36 and 86 degrees F). Throw away any unused medicine after the expiration date. What should I tell my health care provider before I take this medicine? They need to know if you have any of these conditions: heart disease history of irregular heartbeat liver disease low levels of magnesium or potassium in the blood an unusual or allergic reaction to ondansetron, granisetron, other medicines, foods, dyes, or preservatives or trying to get breast-feeding What should I watch for while using this medicine? Check with your doctor or health patient care director as soon as you can if you have any sign of an allergic reaction. Oxycodone Hydrochloride, Acetaminophen Oral tablet What is this medicine? ACETAMINOPHEN; OXYCODONE (a set a ABI melissa fen; ox i KOE done) is a pain reliever. It is used to treat mild to moderate pain. How should I use this medicine? Take this medicine by mouth with a full glass of water. Follow the directions on the prescription label. Take your medicine at regular intervals. Do not take your medicine more often than directed. Talk to your as400 administrator regarding the use of this medicine in children. Special care may be needed. Patients over 65 years old may have a stronger reaction and need a smaller dose. What side effects may I notice from receiving this medicine? Side effects that you should report to your doctor or health patient care director as soon as possible: allergic reactions like skin rash, itching or hives, swelling of the face, lips, or tongue breathing difficulties, wheezing confusion light headedness or fainting spells severe stomach pain yellowing of the skin or the whites of the eyes Side effects that usually do not require medical attention (report to your doctor or health patient care director if they continue or are bothersome): dizziness drowsiness nausea vomiting What may interact with this medicine? alcohol antihistamines barbiturates like amobarbital, butalbital, butabarbital, methohexital, pentobarbital, phenobarbital, thiopental, and secobarbital benztropine drugs for bladder problems like solifenacin, trospium, oxybutynin, tolterodine, hyoscyamine, and methscopolamine drugs for breathing problems like ipratropium and tiotropium drugs for certain stomach or intestine problems like propantheline, homatropine methylbromide, glycopyrrolate, atropine, belladonna, and dicyclomine general anesthetics like etomidate, ketamine, nitrous oxide, propofol, desflurane, enflurane, halothane, isoflurane, and sevoflurane medicines for depression, anxiety, or psychotic disturbances medicines for sleep muscle relaxants naltrexone narcotic medicines (opiates) for pain phenothiazines like perphenazine, thioridazine, chlorpromazine, mesoridazine, fluphenazine, prochlorperazine, promazine, and trifluoperazine scopolamine tramadol trihexyphenidyl What if I miss a dose? If you miss a dose, take it as soon as you can. If it is almost time for your next dose, take only that dose. Do not take double or extra doses. Where should I keep my medicine? Keep out of the reach of children. This medicine can be abused. Keep your medicine in a safe place to protect it from theft. Do not share this medicine with anyone. Selling or giving away this medicine is dangerous and against the law. Store at room temperature between 20 and 25 degrees C (68 and 77 degrees F). Keep container tightly closed. Protect from light. This medicine may cause accidental overdose and if it is taken by other adults, children, or pets. Flush any unused medicine down the toilet to reduce the chance of harm. Do not use the medicine after the expiration date. What should I tell my health care provider before I take this medicine? They need to know if you have any of these conditions: brain tumor Crohn's disease, inflammatory bowel disease, or ulcerative colitis drink more than 3 alcohol containing drinks per day drug abuse or addiction head injury heart or circulation problems kidney disease or problems going to the bathroom liver disease lung disease, asthma, or breathing problems an unusual or allergic reaction to acetaminophen, oxycodone, other opioid analgesics, other medicines, foods, dyes, or preservatives or trying to get breast-feeding What should I watch for while using this medicine? Tell your doctor or health patient care director if your pain does not go away, if it gets worse, or if you have new or a different type of pain. You may develop tolerance to the medicine. Tolerance means that you will need a higher dose of the medication for pain relief. Tolerance is normal and is expected if you take this medicine for a long time. Do not suddenly stop taking your medicine because you may develop a severe reaction. Your body becomes used to the medicine. This does NOT mean you are addicted. Addiction is a behavior related to getting and using a drug for a non-medical reason. If you have pain, you have a medical reason to take pain medicine. Your doctor will tell you how much medicine to take. If your doctor wants you to stop the medicine, the dose will be slowly lowered over time to avoid any side effects. You may get drowsy or dizzy. Do not drive, use machinery, or do anything that needs mental alertness until you know how this medicine affects you. Do not stand or sit up quickly, especially if you are an older patient. This reduces the risk of dizzy or fainting spells. Alcohol may interfere with the effect of this medicine. Avoid alcoholic drinks. There are different types of narcotic medicines (opiates) for pain. If you take more than one type at the same time, you may have more side effects. Give your health care provider a list of all medicines you use. Your doctor will tell you how much medicine to take. Do not take more medicine than directed. Call emergency for help if you have problems breathing. The medicine will cause constipation. Try to have a bowel movement at least every 2 to 3 days. If you do not have a bowel movement for 3 days, call your doctor or health patient care director. Do not take Tylenol (acetaminophen) or medicines that have acetaminophen with this medicine. Too much acetaminophen can be very dangerous. Many nonprescription medicines contain acetaminophen. Always read the labels carefully to avoid taking more acetaminophen. You have been given the following additional information: Biliary Colic With Gallstone (Confirmed) Diet, Low Fat Ondansetron Oral disintegrating tablet Oxycodone Hydrochloride, Acetaminophen Oral tablet No strenuous activity. (Electronically signed by Harvey Noriega MD 03/22/2017 8:52)
--- NOTE | 2017-03-22 08:52 | ED MAR SUMMARY ---
..... Medication Administration Record [facility] [address] [place] [address] Patient: LUZ ELENA MALLORY Visit ID: [id number] 31y, F Weight: 78.4 kg Height/Length: 67 in BMI: 27.1 ALLERGIES: Cipro, Levaquin Start 19:03/18/2017 Kecia Kirby R.N. Medication Administered: IV NS (SALINE), Dose: IV Fluids, Bolus: 1000 mL over 1 hour(s), Dispensed: 1000 mL bag, Site: #1 right AC. Medication Ordered: IV NS : initial bolus 1000 mL (1000 mL/hr), then 200 mL/hr for 4h (NOW); Routine. Given 19:03/18/2017 Kecia Kirby R.N. Medication Administered: ZOFRAN [IVP] (ONDANSETRON HCL), Dose: 4 mg IVP over 2 minute(s), Site: #1 right AC. Medication Ordered: Zofran IV 4 mg (NOW). Given 19:03/18/2017 Kecia Kirby R.NEstuardo Medication Administered: DEMEROL [IVP] (MEPERIDINE HCL), Dose: 25 mg IVP over 2 minute(s), Site: #1 right AC. Medication Ordered: Demerol IV 25 mg (NOW).
== END 2017-03-18 20:48 | disposition home or self-care (01) ==
LOC: ED SRH 18:26
DX: K80.60 Calculus of gallbladder and bile duct with cholecystitis, unspecified, without obstruction (principal); Z79.891 Long term (current) use of opiate analgesic; Z79.899 Other long term (current) drug therapy; Z88.1 Allergy status to other antibiotic agents; Z72.0 Tobacco use
CPT/HCPCS: 90100; 92235; 92530; 95059